=== PATIENT | male | born 1965 | race Caucasian/White ===

== ENCOUNTER 2016-09-10 17:23 | Inpatient (IN) | payer BC ==
[2016-09-10] MEDS ORDERED: SODIUM CHLORIDE 0.9% 1000 ML INFUS.BAG IV ONE (17:42)
[2016-09-10] MEDS ORDERED: LIDOCAINE VISCOUS 2% ORAL/TOP 20 ML UNIT-DOSE CUP MM ONE (17:43)
[2016-09-10] MEDS ORDERED: FAMOTIDINE 20 MG/50 ML IVPB 50 ML IVPB ONE ×2 (17:43→17:53)
[2016-09-10] MEDS ORDERED: MAG HYDROX/AL HYDROX/SIMETH 30 ML UNIT-DOSE CUP PO ONE (17:44)
--- NOTE | 2016-09-10 17:49 | PDOC ---
History of Present Illness - General History Source: Patient Exam Limitations: No Limitations <Winifred Batista - Last Filed: 09/10/16 17:46> - General History Source: Patient Exam Limitations: No Limitations - History of Present Illness Initial Comments: 09/10/16 17:50 The patient is a 51 year old male, with a significant past medical history of pancreatitis, diabetes and kidney stones, who presents to the emergency department with abdominal pain and nausea for a couple of days, which worsened today. He describes her abdominal pain as a sharp sensation, intermittent in nature, ranging from mild to moderate, without radiation or modifying factors. He denies any change in severity with food intake. He reports that he does take a baby aspirin daily. The patient was last in the ED September 2015 with the same symptoms, CT abdomen and pelvis revealed pancreatitis and fatty infiltration of the liver. The patient denies chest pain, shortness of breath, headache and dizziness. Denies fever, chills, vomit, diarrhea and constipation. Denies dysuria, frequency, urgency and hematuria. Allergies: None Past surgical history: None reported Social history: Cigarette use. No alcohol or drug use reported PMD - Dr. Underwood Pain Radiation: reports: no radiation <Rajinder Peoples - Last Filed: 09/10/16 17:51> - General Chief Complaint: Pain, Acute Stated Complaint: abd pain Time Seen by Provider: 09/10/16 17:35 Past History - Past Medical History Diabetes: Yes HTN: Yes Hypercholesterolemia: Yes Kidney Stones: Yes - Psycho/Social/Smoking Cessation Hx Anxiety: No Suicidal Ideation: No Smoking Status: Yes Smoking History: Current every day smoker Have you smoked in the past 12 months: Yes Number of Cigarettes Smoked Daily: 20 If you are a former smoker, when did you quit?: yes, four months ago Information on smoking cessation initiated: Yes 'Breaking Loose' booklet given: 09/10/16 Hx Alcohol Use: No Drug/Substance Use Hx: No Substance Use Type: None Hx Substance Use Treatment: No <Winifred Batista - Last Filed: 09/10/16 17:46> <Rajinder Peoples - Last Filed: 09/10/16 17:51> - Past Medical History Allergies/Adverse Reactions: Allergies Allergy/AdvReac Type Severity Reaction Status Date / Time No Known Allergies Allergy Verified 09/10/16 17:24 Home Medications: Ambulatory Orders Aspirin [Ecotrin] 81 mg PO DAILY 10/08/15 Metformin HCl [Glucophage -] 500 mg PO DAILY 10/08/15 Ramipril 2.5 mg PO DAILY 10/08/15 Atorvastatin Ca [Lipitor] 40 mg PO HS 09/10/16 Review of Systems - Review of Systems Able to Perform ROS?: Yes Comments:: 09/10/16 17:51 GENERAL/CONSTITUTIONAL: No fever or chills. No weakness. HEAD, EYES, EARS, NOSE AND THROAT: No change in vision. No ear pain or discharge. No sore throat. CARDIOVASCULAR: No chest pain or shortness of breath RESPIRATORY: No cough, wheezing, or hemoptysis. GASTROINTESTINAL: (+) Abdominal pain and nausea. No vomiting, diarrhea or constipation. GENITOURINARY: No dysuria, frequency, or change in urination. MUSCULOSKELETAL: No joint or muscle swelling or pain. No neck or back pain. SKIN: No rash NEUROLOGIC: No headache, vertigo, loss of consciousness, or change in strength/ sensation. ENDOCRINE: No increased thirst. No abnormal weight change HEMATOLOGIC/LYMPHATIC: No anemia, easy bleeding, or history of blood clots. ALLERGIC/IMMUNOLOGIC: No hives or skin allergy. <Rajinder Peoples - Last Filed: 09/10/16 17:51> *Physical Exam - Vital Signs Last Vital Signs Temp Pulse Resp BP Pulse Ox 98.4 F 89 18 160/104 100 09/10/16 17:24 09/10/16 17:24 09/10/16 17:24 09/10/16 17:24 09/10/16 17:24 <Winifred Batista - Last Filed: 09/10/16 17:46> - Vital Signs Last Vital Signs Temp Pulse Resp BP Pulse Ox 98.4 F 89 18 160/104 100 09/10/16 17:24 09/10/16 17:24 09/10/16 17:24 09/10/16 17:24 09/10/16 17:24 - Physical Exam Comments: 09/10/16 17:51 GENERAL: Awake, alert, and fully oriented, in no acute distress HEAD: No signs of trauma, normocephalic, atraumatic EYES: PERRLA, EOMI, sclera anicteric, conjunctiva clear ENT: Auricles normal inspection, hearing grossly normal, nares patent, oropharynx clear without exudates. Moist mucosa NECK: Normal ROM, supple, no lymphadenopathy, JVD, or masses LUNGS: No distress, speaks full sentences, clear to auscultation bilaterally HEART: Regular rate and rhythm, normal S1 and S2, no murmurs, rubs or gallops, peripheral pulses normal and equal bilaterally. ABDOMEN: (+) Obese, epigastric tenderness. Soft, normoactive bowel sounds. No guarding, no rebound. No masses EXTREMITIES: Normal inspection, Normal range of motion, no edema. No clubbing or cyanosis. NEUROLOGICAL: Cranial nerves II through XII grossly intact. Normal speech, normal gait, no focal sensorimotor deficits SKIN: Warm, Dry, normal turgor, no rashes or lesions noted. Vascular Pulses: Femoral (R): 4+, Femoral (L): 4+, Carotid (R): 4+, Carotid (L) : 4+, Dorsalis-Pedis (R): 4+, Doralis-Pedis (L): 4+ <Rajinder Peoples - Last Filed: 09/10/16 17:51> ED Treatment Course - RADIOLOGY Radiology Studies Ordered: Category Date Time Status ABDOMEN & PELVIS CT WITH CONTR [CT] Stat CT Scan 09/10/16 17:42 Ordered <Winifred Batista - Last Filed: 09/10/16 17:46> Medical Decision Making - Medical Decision Making 09/10/16 17:46 51 yo M ho dM HTN , h/o pancreatitis ( idiopathic) here wtih c/o few days of abd epigastric pain. no n/v/d. no fever pain constant, but it gets worse in waves. no fever or chills. no h/o alcohol. no h/o gallstones. no cp no sob. no diarrhea. no urinary complaints. no change to appetitie, no change to pain with food. on exam awake alert. lungs clear. heart rrr no mrg. abd soft obese, epigastric ttp. no rebound no guard. ext wwp no edema. plan: ct a/p eval pancreatitis. labs lipase ua pain control. differential cholecysitis, pud, gastritis, <Winifred Batista - Last Filed: 09/10/16 17:46> *DC/Admit/Observation/Transfer <Winifred Batista - Last Filed: 09/10/16 17:46> - Attestations Scribe Attestion: 09/10/16 17:51 Documentation prepared by Rajinder Peoples, acting as medical director for Winifred Batista MD <Rajinder Peoples - Last Filed: 09/10/16 17:51> - Discharge Dispostion Condition at time of disposition: Stable
[2016-09-10] MEDS ORDERED: MAG HYDROX/AL HYDROX/SIMETH 30 ML UNIT-DOSE CUP ONE (17:54)
[2016-09-10] MEDS ORDERED: LIDOCAINE VISCOUS 2% ORAL/TOP 100 ML BOTTLE ONE (17:55)
[2016-09-10 18:14] LABS: URINE APPEARANCE Clear; URINE BILIRUBIN Negative (NEGATIVE); URINE BLOOD Negative (NEGATIVE); URINE GLUCOSE (UA) Trace (NEGATIVE); URINE KETONE Negative (NEGATIVE); URINE LEUK ESTERASE Negative (NEGATIVE); URINE NITRITE Negative (NEGATIVE); URINE PROTEIN Negative (NEGATIVE); URINE UROBILINOGEN 0.2 E.U/dl (0.2-1.0)
[2016-09-10 18:18] LABS: URINE COLOR YELLOW
[2016-09-10 18:21] LABS: ALBUMIN 3.7 g/dl (3.5-5.0); ALK PHOS 79 U/L (32-92); AMYLASE 67 U/L (25-125); ANION GAP 8 (8-16); BILIRUBIN,TOTAL 0.8 mg/dl (0.2-1.0); CALCIUM 9.5 mg/dl (8.4-10.2); CO2 26 mmol/L (22-28); CREATININE 0.9 mg/dl (0.6-1.3); GLUCOSE,RANDOM 235 mg/dl (74-106); SGOT/AST 19 U/L (10-42); SGPT/ALT 27 U/L (10-40); TOT PROT 7.3 g/dl (6.4-8.3)
[2016-09-10 18:23] LABS: COCKROFT - GAULT NT
[2016-09-10 18:36] LABS: RDW 12.8 % (11.9-15.9)
[2016-09-10 18:38] LABS: MCH 27.8 pg (25.7-33.7); MCHC 33.5 g/dl (32.0-35.9); WHITE BLOOD COUNT 14.1 K/mm3 (4.0-10.8)
[2016-09-10 18:39] LABS: BASOPHIL 0.7 % (0-2.0); NEUTROPHILS 68.1 % (42.8-82.8)
[2016-09-10 18:49] LABS: MEAN PLT VOLUME 11.4 fl (7.5-11.1)
[2016-09-10 18:50] LABS: PLATELET COUNT 228 K/MM3 (134-434)
[2016-09-10] MEDS ORDERED: ONDANSETRON 4 MG/2 ML VIAL IVPUSH ONE (19:08)
[2016-09-10] MEDS ORDERED: ONDANSETRON 4 MG/2 ML VIAL ONE (19:08)
--- NOTE | 2016-09-10 19:47 | PDOC ---
*Physical Exam - Vital Signs Last Vital Signs Temp Pulse Resp BP Pulse Ox 98.4 F 89 18 160/104 100 09/10/16 17:24 09/10/16 17:24 09/10/16 17:24 09/10/16 18:02 09/10/16 17:24 ED Treatment Course - LABORATORY CBC & Chemistry Diagram: 09/10/16 17:52 09/10/16 17:45 - ADDITIONAL ORDERS Additional order review: Laboratory Results 09/10/16 09/10/16 18:00 17:45 Sodium 135 L Potassium 4.4 Chloride 101 Carbon Dioxide 26 Anion Gap 8 BUN 18 D Creatinine 0.9 Creat Clearance w eGFR > 60 Random Glucose 235 H D Calcium 9.5 Total Bilirubin 0.8 D AST 19 D ALT 27 D Alkaline Phosphatase 79 Total Protein 7.3 Albumin 3.7 Total Amylase 67 Lipase 178 H Urine Color Yellow Urine Appearance Clear Urine pH 5.0 Ur Specific [place] >= 1.030 H Urine Protein Negative Urine Glucose (UA) Trace Urine Ketones Negative Urine Blood Negative Urine Nitrite Negative Urine Bilirubin Negative Urine Urobilinogen 0.2 e.u/dl Ur Leukocyte Esterase Negative 09/10/16 17:52 RBC 5.42 MCV 83.0 MCHC 33.5 RDW 12.8 MPV 11.4 H Neutrophils % 68.1 D Lymphocytes % 22.5 D Monocytes % 6.7 Eosinophils % 2.0 Basophils % 0.7 - Medications Given in the ED: ED Medications Discontinued Medications Generic Name Dose Route Start Last Admin Trade Name Freq PRN Reason Stop Dose Admin Al Hydroxide/Mg Hydroxide 30 ml 09/10/16 17:44 09/10/16 18:02 Mylanta Oral Suspension - PO 09/10/16 17:45 30 ml ONCE ONE Administration Famotidine/Sodium Chloride 50 mls @ 100 mls/hr 09/10/16 17:43 09/10/16 18:01 Pepcid 20 Mg Premixed Ivpb - IVPB 09/10/16 18:12 100 mls/hr ONCE ONE Administration Lidocaine HCl 20 ml 09/10/16 17:43 09/10/16 18:01 Xylocaine 2% Viscous Oral - MM 09/10/16 17:44 20 ml ONCE ONE Administration Ondansetron HCl 4 mg 09/10/16 19:08 09/10/16 19:11 Zofran Injection IVPUSH 09/10/16 19:09 4 mg ONCE ONE Administration Sodium Chloride 1,000 ml 09/10/16 17:42 09/10/16 18:02 Normal Saline - IV 09/10/16 17:43 1,000 ml ONCE ONE Administration Progress Note - Progress Note Progress Note: Abdominal/pelvic CT shows peripancreatic stranding consistent with mild acute pancreatitis. There is no necrosis or pseudocyst evident and no other acute pathology noted in the study. The patient's PMD is Dr. Underwood. Dr. Tadeo is covering for admissions :Case discussed with him. The patient will be admitted on their service with acute pancreatitis. *DC/Admit/Observation/Transfer Diagnosis at time of Disposition: Acute pancreatitis Qualifiers: Pancreatitis type: unspecified pancreatitis type Acute pancreatitis complication: no infection or necrosis Qualified Code(s): K85.90 - Acute pancreatitis without necrosis or infection, unspecified - Discharge Dispostion Condition at time of disposition: Stable Admit: Yes
[2016-09-10] MEDS ORDERED: ONDANSETRON 4 MG/2 ML VIAL IVPB PRN (20:07)
[2016-09-10] MEDS ORDERED: oxyCODONE HCL 5 MG TABLET PO PRN (20:07)
[2016-09-10] MEDS ORDERED: ACETAMINOPHEN 325 MG TABLET (FP) PO PRN (20:07)
[2016-09-10] MEDS ORDERED: morphine CARPU-JECT 2 MG/1 ML DISP.SYRIN IVPUSH PRN (20:07)
[2016-09-10] MEDS ORDERED: morphine CARPU-JECT 4 MG/1 ML DISP.SYRIN IVPUSH ONE (20:10)
[2016-09-10] MEDS ORDERED: morphine CARPU-JECT 2 MG/1 ML DISP.SYRIN ONE (20:13)
[2016-09-10 22:02] VITALS: BMI 40.6
[2016-09-10] MEDS: LACTATED RINGERS SOLUTION 1,000 ML IV SCH (22:15)
[2016-09-10] MEDS: INSULIN SLIDING SCALE (NOVOLOG) 1 VIAL SQ SCH (22:18)
[2016-09-11] MEDS: INSULIN SLIDING SCALE (NOVOLOG) 1 VIAL SQ SCH ×4 (08:55→21:55)
[2016-09-11] MEDS: ASPIRIN COATED 81 MG TABLET.EC PO SCH (09:43)
[2016-09-11] MEDS: ENOXAPARIN NA (PORCINE) 40 MG/0.4 ML DISP.SYRIN SQ SCH (09:44)
--- NOTE | 2016-09-11 09:51 | HP ---
Admitting History and Physical - Primary Care Physician PCP: Alec Underwood - Admission Chief Complaint: My stomach hurt History of Present Illness: Mr Broderick is a pleasant 51 year old male who comes in with abdominal pain. He says it began 3 days ago. It is located in his epigastric area and radiates to his back. It is constant. At it's worst it was 8-9/10. At first he thought it was gas pain but realized it was something else when in persisted. It was not exacerbated by eating. He denies fevers, chills, lightheadedness, dizziness, chest pain, shortness of breath, nausea, vomiting, diarrhea, constipation, pain or difficulty urinating, or swelling. He had one episode of vomiting to me this morning reported by RN. Currently he says that was the only time and he feels better now. He is no longer having pain and is saying he is beginning to feel hungry. History Source: Patient Limitations to Obtaining History: No Limitations - Past Medical History Cardiovascular: Yes: HTN, Hyperlipdemia Renal/: Yes: Renal Calculi Endocrine: Yes: Diabetes Mellitus - Past Surgical History Past Surgical History: Yes: None - Smoking History Smoking history: Current every day smoker Have you smoked in the past 12 months: Yes Aproximately how many cigarettes per day: 20 - Alcohol/Substance Use Hx Alcohol Use: No History of Substance Use: reports: Marijuana - Social History Usual Living Arrangement: Yes: With Spouse ADL: Independent Occupation: none History of Recent Travel: No Home Medications - Allergies Allergies/Adverse Reactions: Allergies Allergy/AdvReac Type Severity Reaction Status Date / Time No Known Allergies Allergy Verified 09/10/16 17:24 - Home Medications Home Medications: Ambulatory Orders Aspirin [Ecotrin] 81 mg PO DAILY 10/08/15 Metformin HCl [Glucophage -] 500 mg PO DAILY 10/08/15 Ramipril 2.5 mg PO DAILY 10/08/15 Atorvastatin Ca [Lipitor] 40 mg PO HS 09/10/16 Family Disease History - Family Disease History Family Disease History: Diabetes: Father, Mother (HTN), Other: Mother, Brother ( HTN) Review of Systems Findings/Remarks: Full review of systems obtained, as per HPI and otherwise negative Physical Examination Vital Signs: Vital Signs Temperature 98.6 F 09/11/16 06:00 Pulse Rate 74 09/11/16 06:00 Respiratory Rate 18 09/11/16 06:00 Blood Pressure 120/64 09/11/16 06:00 O2 Sat by Pulse Oximetry (%) 95 09/11/16 06:40 Constitutional: Yes: No Distress, Calm, Obese Eyes: Yes: Conjunctiva Clear, EOM Intact, PERRL HENT: Yes: Atraumatic, Normocephalic Cardiovascular: Yes: Regular Rate and Rhythm. No: Gallop, Murmur, Rub Respiratory: Yes: Regular, CTA Bilaterally. No: Rales, Rhonchi, Wheezes Gastrointestinal: Yes: Normal Bowel Sounds, Soft. No: Distention, Tenderness Extremities: Yes: WNL Edema: No Labs: Laboratory Results - last 24 hr 09/10/16 09/10/16 09/10/16 17:45 17:52 18:00 WBC 14.1 H D RBC 5.42 Hgb 15.1 Hct 45.0 MCV 83.0 MCHC 33.5 RDW 12.8 Plt Count 228 MPV 11.4 H Neutrophils % 68.1 D Lymphocytes % 22.5 D Monocytes % 6.7 Eosinophils % 2.0 Basophils % 0.7 Sodium 135 L Potassium 4.4 Chloride 101 Carbon Dioxide 26 Anion Gap 8 BUN 18 D Creatinine 0.9 Creat Clearance w eGFR > 60 POC Glucometer Random Glucose 235 H D Calcium 9.5 Total Bilirubin 0.8 D AST 19 D ALT 27 D Alkaline Phosphatase 79 Total Protein 7.3 Albumin 3.7 Total Amylase 67 Lipase 178 H Urine Color Yellow Urine Appearance Clear Urine pH 5.0 Ur Specific [place] >= 1.030 H Urine Protein Negative Urine Glucose (UA) Trace Urine Ketones Negative Urine Blood Negative Urine Nitrite Negative Urine Bilirubin Negative Urine Urobilinogen 0.2 e.u/dl Ur Leukocyte Esterase Negative 09/10/16 09/11/16 22:17 06:48 WBC RBC Hgb Hct MCV MCHC RDW Plt Count MPV Neutrophils % Lymphocytes % Monocytes % Eosinophils % Basophils % Sodium Potassium Chloride Carbon Dioxide Anion Gap BUN Creatinine Creat Clearance w eGFR POC Glucometer 116 130 Random Glucose Calcium Total Bilirubin AST ALT Alkaline Phosphatase Total Protein Albumin Total Amylase Lipase Urine Color Urine Appearance Urine pH Ur Specific [place] Urine Protein Urine Glucose (UA) Urine Ketones Urine Blood Urine Nitrite Urine Bilirubin Urine Urobilinogen Ur Leukocyte Esterase Imaging - Results Cat Scan: Report Reviewed Problem List - Problems (1) Acute pancreatitis Assessment/Plan: -Mr Broderick presents with pancreatitis -had similar episode last year -admitted to the hospital -was kept npo overnight and hydrated with LR -feeling hungry today, will advance diet to clear liquid -follow up repeat lipase -check lipid panel -counselled patient on cessation of marijuana as is a class 1A drug causing pancreatitis -metformin and lipitor are class 3, will hold at this time -can restart ramipril Code(s): K85.9 - ACUTE PANCREATITIS, UNSPECIFIED * DO NOT USE * Qualifiers: Pancreatitis type: idiopathic Acute pancreatitis complication: no infection or necrosis Qualified Code(s): K85.00 - Idiopathic acute pancreatitis without necrosis or infection (2) HTN (hypertension) Assessment/Plan: -currently controlled -start ramipril Code(s): I10 - ESSENTIAL (PRIMARY) HYPERTENSION (3) Type 2 diabetes mellitus without complications Assessment/Plan: -currently npo, advance to clear liquid -hold metformin until pancreatitis resolved -FSBS and SSI Code(s): E11.9 - TYPE 2 DIABETES MELLITUS WITHOUT COMPLICATIONS (4) HLD (hyperlipidemia) Assessment/Plan: -check lipid panel -hold statin, can restart on discharge Code(s): E78.5 - HYPERLIPIDEMIA, UNSPECIFIED (5) Tobacco abuse Assessment/Plan: -counselled on stopping tobacco use -patient says he is "working on it" -declined nicotine patch, states he wants to do it on his own Code(s): Z72.0 - TOBACCO USE
[2016-09-11 10:02] LABS: BASOPHIL 0.2 % (0-2.0); EOSINOPHIL 2.7 % (0-4.5); MCH 27.7 pg (25.7-33.7); MCHC 33.1 g/dl (32.0-35.9); MEAN CELL VOLUME 83.7 fl (80-96); MEAN PLT VOLUME 11.5 fl (7.5-11.1); NEUTROPHILS 62.5 % (42.8-82.8); PLATELET COUNT 182 K/MM3 (134-434); RDW 12.8 % (11.9-15.9); WHITE BLOOD COUNT 9.6 K/mm3 (4.0-10.8)
[2016-09-11 10:09] LABS: CALCIUM 9.1 mg/dl (8.4-10.2); COCKROFT - GAULT 190.57; CREATININE 0.8 mg/dl (0.6-1.3); MAGNESIUM 1.9 mg/dL (1.8-2.4); PHOSPHOROUS 3.4 mg/dl (2.5-4.6)
[2016-09-11 12:16] LABS: CHOLESTEROL 126 mg/dl
[2016-09-11] MEDS: LACTATED RINGERS SOLUTION 1,000 ML IV SCH (20:20)
[2016-09-12 08:36] LABS: BASOPHIL 0.4 % (0-2.0); EOSINOPHIL 3.1 % (0-4.5); MCH 27.5 pg (25.7-33.7); MCHC 33.5 g/dl (32.0-35.9); MEAN PLT VOLUME 11.7 fl (7.5-11.1); NEUTROPHILS 59.5 % (42.8-82.8); PLATELET COUNT 210 K/MM3 (134-434); RDW 12.6 % (11.9-15.9); WHITE BLOOD COUNT 9.3 K/mm3 (4.0-10.8)
[2016-09-12 08:42] LABS: CALCIUM 9.5 mg/dl (8.4-10.2); COCKROFT - GAULT 190.57; CREATININE 0.8 mg/dl (0.6-1.3); PHOSPHOROUS 3.7 mg/dl (2.5-4.6)
[2016-09-12] MEDS: INSULIN SLIDING SCALE (NOVOLOG) 1 VIAL SQ SCH ×3 (09:00→17:30)
--- NOTE | 2016-09-12 09:35 | PN ---
Progress Note, Physician Chief Complaint: Mr Broderick says he is still having some abdominal pain but it is much decreased. No cp, sob, n/v. - Current Medication List Current Medications: Active Medications Acetaminophen (Tylenol -) 650 mg PO Q4H PRN PRN Reason: FEVER OR PAIN Last Admin: 09/11/16 08:54 Dose: 650 mg Aspirin (Ecotrin -) 81 mg PO DAILY [facility] Last Admin: 09/11/16 09:43 Dose: 81 mg Enoxaparin Sodium (Lovenox -) 40 mg SQ DAILY [facility] Last Admin: 09/11/16 09:44 Dose: 40 mg Lactated Ringer's (Lactated Ringers Solution) 1,000 mls @ 125 mls/hr IV ASDIR [facility] Last Admin: 09/11/16 20:20 Dose: 125 mls/hr Insulin Aspart (Novolog Vial Sliding Scale -) 1 vial SQ ACHS [facility] PRN Reason: Protocol Last Admin: 09/11/16 21:55 Dose: Not Given Morphine Sulfate (Morphine Injection -) 2 mg IVPUSH Q4H PRN PRN Reason: PAIN LEVEL 6-10 Last Admin: 09/11/16 01:19 Dose: 2 mg Ondansetron HCl (Zofran Injection) 4 mg IVPB Q6H PRN PRN Reason: NAUSEA Oxycodone HCl (Roxicodone -) 5 mg PO Q4H PRN PRN Reason: PAIN - Objective Vital Signs: Vital Signs Temperature 98.0 F 09/12/16 06:00 Pulse Rate 73 09/12/16 06:00 Respiratory Rate 18 09/12/16 06:00 Blood Pressure 106/60 09/12/16 06:00 O2 Sat by Pulse Oximetry (%) 97 09/12/16 06:32 Constitutional: Yes: No Distress, Calm, Obese Cardiovascular: Yes: Regular Rate and Rhythm. No: Gallop, Murmur, Rub Respiratory: Yes: Regular, CTA Bilaterally. No: Rales, Rhonchi, Wheezes Gastrointestinal: Yes: Normal Bowel Sounds, Soft. No: Distention, Tenderness Extremities: Yes: WNL Edema: No Labs: CBC, BMP 09/12/16 07:00 09/12/16 07:00 Problem List - Problems (1) Acute pancreatitis Code(s): K85.9 - ACUTE PANCREATITIS, UNSPECIFIED * DO NOT USE * Qualifiers: Pancreatitis type: idiopathic Acute pancreatitis complication: no infection or necrosis Qualified Code(s): K85.00 - Idiopathic acute pancreatitis without necrosis or infection (2) HTN (hypertension) Code(s): I10 - ESSENTIAL (PRIMARY) HYPERTENSION (3) Type 2 diabetes mellitus without complications Code(s): E11.9 - TYPE 2 DIABETES MELLITUS WITHOUT COMPLICATIONS (4) HLD (hyperlipidemia) Code(s): E78.5 - HYPERLIPIDEMIA, UNSPECIFIED (5) Tobacco abuse Code(s): Z72.0 - TOBACCO USE Assessment/Plan (1) Acute pancreatitis Assessment/Plan: -lipid panel normal -improving, still with slightly elevated lipase -will continue full liquid diet today, increase to diabetic at dinner -monitor tonight and recheck tomorrow after eating regular diet -if doing well, discharge tomorrow Code(s): K85.9 - ACUTE PANCREATITIS, UNSPECIFIED * DO NOT USE * Qualifiers: Pancreatitis type: idiopathic Acute pancreatitis complication: no infection or necrosis Qualified Code(s): K85.00 - Idiopathic acute pancreatitis without necrosis or infection (2) HTN (hypertension) Assessment/Plan: -continue ramipril Code(s): I10 - ESSENTIAL (PRIMARY) HYPERTENSION (3) Type 2 diabetes mellitus without complications Assessment/Plan: -diet as above -patient requesting to change diabetic medication -will change to glipizide on discharge Code(s): E11.9 - TYPE 2 DIABETES MELLITUS WITHOUT COMPLICATIONS (4) HLD (hyperlipidemia) Assessment/Plan: -restart lipitor on discharge Code(s): E78.5 - HYPERLIPIDEMIA, UNSPECIFIED (5) Tobacco abuse Assessment/Plan: -again counselled on stopping tobacco as is independent risk factor in pancreatitis Code(s): Z72.0 - TOBACCO USE Dispo -possible discharge tomorrow
[2016-09-12] MEDS: ENOXAPARIN NA (PORCINE) 40 MG/0.4 ML DISP.SYRIN SQ SCH (10:44)
[2016-09-12] MEDS: ASPIRIN COATED 81 MG TABLET.EC PO SCH (10:44)
--- NOTE | 2016-09-12 14:44 | EKG ---
Test Reason : Blood Pressure : / mmHG Vent. Rate : 087 BPM Atrial Rate : 087 BPM P-R Int : 142 ms QRS Dur : 076 ms QT Int : 374 ms P-R-T Axes : 096 -12 022 degrees QTc Int : 450 ms NORMAL SINUS RHYTHM NORMAL ECG WHEN COMPARED WITH ECG OF 07-FEB-2013 14:10, NO SIGNIFICANT CHANGE WAS FOUND Confirmed by RALPH FIGUEREDO MD ([id number] on 09/12/2016 2:43:45 PM Referred By: AMIRAH Confirmed By:RALPH FIGUEREDO MD
[2016-09-13 06:03] VITALS: BP 122/78; PULSE 72; TEMP 98.6
[2016-09-13] MEDS: INSULIN SLIDING SCALE (NOVOLOG) 1 VIAL SQ SCH ×2 (07:17→11:33)
[2016-09-13 08:39] LABS: BASOPHIL 0.3 % (0-2.0); MCH 27.8 pg (25.7-33.7); MCHC 33.6 g/dl (32.0-35.9); MEAN CELL VOLUME 82.6 fl (80-96); MEAN PLT VOLUME 11.3 fl (7.5-11.1); NEUTROPHILS 55.8 % (42.8-82.8); PLATELET COUNT 234 K/MM3 (134-434); RDW 12.4 % (11.9-15.9); WHITE BLOOD COUNT 9.3 K/mm3 (4.0-10.8)
[2016-09-13 08:49] LABS: ANION GAP 10 (8-16); CALCIUM 9.7 mg/dl (8.4-10.2); CO2 25 mmol/L (22-28); CREATININE 0.8 mg/dl (0.6-1.3); GLUCOSE,RANDOM 129 mg/dl (74-106); PHOSPHOROUS 3.9 mg/dl (2.5-4.6)
--- NOTE | 2016-09-13 09:34 | DS ---
Physical Examination Vital Signs: Vital Signs Temperature 98.6 F 09/13/16 06:00 Pulse Rate 72 09/13/16 06:00 Respiratory Rate 20 09/13/16 06:00 Blood Pressure 122/78 09/13/16 06:00 O2 Sat by Pulse Oximetry (%) 100 09/13/16 08:08 Constitutional: Yes: No Distress, Calm, Obese Cardiovascular: Yes: Regular Rate and Rhythm. No: Gallop, Murmur, Rub Respiratory: Yes: Regular, CTA Bilaterally. No: Rales, Rhonchi, Wheezes Gastrointestinal: Yes: Normal Bowel Sounds, Soft. No: Distention, Tenderness Extremities: Yes: WNL Edema: No Labs: CBC, BMP 09/13/16 07:35 09/13/16 07:35 Discharge Summary Reason For Visit: PANCREATITIS Current Active Problems Acute pancreatitis (Acute) HLD (hyperlipidemia) (Acute) Tobacco abuse (Acute) Hospital Course: (1) Acute pancreatitis Code(s): K85.9 - ACUTE PANCREATITIS, UNSPECIFIED * DO NOT USE * Qualifiers: Pancreatitis type: idiopathic Acute pancreatitis complication: no infection or necrosis Qualified Code(s): K85.00 - Idiopathic acute pancreatitis without necrosis or infection (2) HTN (hypertension) Code(s): I10 - ESSENTIAL (PRIMARY) HYPERTENSION (3) Type 2 diabetes mellitus without complications Code(s): E11.9 - TYPE 2 DIABETES MELLITUS WITHOUT COMPLICATIONS (4) HLD (hyperlipidemia) Code(s): E78.5 - HYPERLIPIDEMIA, UNSPECIFIED (5) Tobacco abuse Code(s): Z72.0 - TOBACCO USE Mr Broderick is a pleasant 51 year old male who comes in with acute pancreatitis. He was admitted and made npo. He was hydrated with IVF. His statin and metformin were held. He improved significantly and his diet was advanced without difficulty. He is currently eating a normal diet and is pain free. He requested his metformin be changed, he has concern it was contributing to pancreatitis. He was also instructed to stop smoking both tobacco and marijuana. He will be changed to glipizide. Currently he is safe for discharge home. 31 minutes spent in preparation of this discharge Condition: Good - Instructions Diet, Activity, Other Instructions: diabetic diet. resume previous activity. Referrals: Alec Underwood MD [Staff Physician] - Disposition: HOME - Home Medications Comprehensive Discharge Medication List: Ambulatory Orders Aspirin [Ecotrin] 81 mg PO DAILY 10/08/15 Ramipril 2.5 mg PO DAILY 10/08/15 Atorvastatin Ca [Lipitor] 40 mg PO HS 09/10/16 Glipizide [Glipizide ER] 2.5 mg PO DAILY #30 [email or web address] 09/13/16
[2016-09-13] MEDS: ASPIRIN COATED 81 MG TABLET.EC PO SCH (09:57)
[2016-09-13] MEDS: ENOXAPARIN NA (PORCINE) 40 MG/0.4 ML DISP.SYRIN SQ SCH (09:57)
== END 2016-09-13 12:08 | disposition home or self-care (01) | DRG 439 ==
LOC: FER 17:23 → FM/S 21:36
PROVIDERS: ADMIT Internal Medicine; ATTEND Internal Medicine
DX: K85.00 Idiopathic acute pancreatitis without necrosis or infection (principal); Z68.41 Body mass index [BMI] 40.0-44.9, adult; I10 Essential (primary) hypertension; E78.5 Hyperlipidemia, unspecified; E11.9 Type 2 diabetes mellitus without complications; Z87.442 Personal history of urinary calculi; F17.210 Nicotine dependence, cigarettes, uncomplicated; E66.8 Other obesity
CPT/HCPCS: 36415; 74177-TC; 80048; 80053; 80061; 81003; 82150; 83690; 83735; 84100; 85025; 93005; 94010; 99283-25

== ENCOUNTER 2018-01-05 18:50 | Emergency (ER) | payer BC ==
[2018-01-05 19:04] VITALS: BP 136/73; PULSE 99; TEMP 98.6; BMI 40.6
[2018-01-05] MEDS ORDERED: IBUPROFEN 600 MG TABLET (FP) PO ONE ×2 (19:52→19:57)
--- NOTE | 2018-01-05 20:18 | PDOC ---
History of Present Illness - General History Source: Patient Exam Limitations: No Limitations - History of Present Illness Initial Comments: 01/05/18 20:13 52-year-old male history of diabetes hyperlipidemia here today status post fall patient states he tripped and fell down 7 stairs fell forward after twisting his ankle. Didn't hit his head denies any LOC states this happened earlier this morning no nausea no vomiting is complaining of right ankle pain and swelling. Has been ambulating with a limp. Does take a daily baby aspirin did hit his head he also sustained an abrasion to his left arm and forehead. No new focal weakness numbness tingling denies a headache pain is moderate did take a Tylenol with mild relief no knee or hip pain <Winifred Batista - Last Filed: 01/05/18 20:58> <Jeni Dewitt - Last Filed: 01/05/18 21:02> - General Chief Complaint: Injury Stated Complaint: TRIP & FALL Past History - Past Medical History Anemia: No Asthma: No Cancer: No Cardiac Disorders: No CVA: No COPD: No CHF: No Dementia: No Diabetes: Yes GI Disorders: Yes (pancreatitis 2015) HTN: Yes Hypercholesterolemia: Yes Kidney Stones: Yes Seizures: No - Immunization History Td Vaccination: Yes (2013) - Suicide/Smoking/Psychosocial Hx Smoking Status: Yes Smoking History: Former smoker Have you smoked in the past 12 months: No Number of Cigarettes Smoked Daily: 20 If you are a former smoker, when did you quit?: 2017 Information on smoking cessation initiated: Yes 'Breaking Loose' booklet given: 09/10/16 Hx Alcohol Use: No Drug/Substance Use Hx: No Substance Use Type: None Hx Substance Use Treatment: No <Winifred Batista - Last Filed: 01/05/18 20:58> <Jeni Dewitt - Last Filed: 01/05/18 21:02> - Past Medical History Allergies/Adverse Reactions: Allergies Allergy/AdvReac Type Severity Reaction Status Date / Time No Known Allergies Allergy Verified 01/05/18 18:55 Home Medications: Ambulatory Orders Aspirin [Ecotrin] 81 mg PO DAILY 10/08/15 Ramipril 2.5 mg PO DAILY 10/08/15 Glipizide [Glipizide ER] 2.5 mg PO DAILY #30 tab.[id number] 09/13/16 Acetaminophen [Tylenol Arthritis] 1,300 mg PO BID PRN 01/05/18 Atorvastatin Ca [Lipitor] 10 mg PO DAILY 01/05/18 Ibuprofen 600 mg PO TID PRN #30 tablet MDD 3 01/05/18 Review of Systems - Review of Systems Constitutional: No: Chills, Diaphoresis HEENTM: No: Eye Pain, Nose Bleeding Respiratory: No: Cough, Shortness of Breath Cardiac (ROS): No: Chest Pain Musculoskeletal: Yes: Joint Pain, Joint Swelling Integumentary: Yes: Other (abrasion) All Other Systems: Reviewed and Negative <Winifred Batista - Last Filed: 01/05/18 20:58> *Physical Exam - Vital Signs Last Vital Signs Temp Pulse Resp BP Pulse Ox 98.6 F 99 H 18 136/73 98 01/05/18 18:51 01/05/18 18:51 01/05/18 18:51 01/05/18 18:51 01/05/18 18:51 - Physical Exam Comments: 01/05/18 20:16 Awake alert no acute distress. HEENT exam demonstrates pupils are equally round and react to light. Extraocular motions are intact. There is a central forehead superficial abrasion no bony step-offs no crepitus. Jaw no malocclusion. Lungs are clear bilaterally heart is regular without any murmurs rubs or gallops. Chest wall no focal tenderness no step-offs no crepitus. Abdomen is soft and nontender hips are's nontender bilaterally pelvis is stable. Extremities are warm and well-perfused. The right lower extremity demonstrates ankle with tenderness to palpation over the lateral malleolus. Negative medial or posterior malleoli tenderness. Decreased range of motion due to pain pain with inversion the foot is nontender there is associated malleoli or swelling knee is nontender full range of motion and hip is nontender full range of motion. No proximal fibular tenderness skin is warm and dry there is noted to be in a superficial abrasion over the left flexion crease of the upper forearm and the forehead as described above neurologically the patient is alert and oriented 3 GCS 15 5 out of 5 strength all 4 extremities <Winifred Batista - Last Filed: 01/05/18 20:58> - Vital Signs Last Vital Signs Temp Pulse Resp BP Pulse Ox 98.6 F 99 H 18 136/73 98 01/05/18 18:51 01/05/18 18:51 01/05/18 18:51 01/05/18 18:51 01/05/18 18:51 <Jeni Dewitt - Last Filed: 01/05/18 21:02> ED Treatment Course - RADIOLOGY Radiology Studies Ordered: Category Date Time Status HEAD CT WITHOUT CONTRAST [CT] Stat CT Scan 01/05/18 19:51 Taken ANKLE-RIGHT [RAD] Stat Radiology 01/05/18 19:52 Ordered - Medications Given in the ED: ED Medications Discontinued Medications Generic Name Dose Route Start Last Admin Trade Name Freq PRN Reason Stop Dose Admin Ibuprofen 600 mg 01/05/18 19:52 01/05/18 19:58 Motrin - PO 01/05/18 19:53 600 mg ONCE ONE Administration <Winifred Batista - Last Filed: 01/05/18 20:58> - Medications Given in the ED: ED Medications Discontinued Medications Generic Name Dose Route Start Last Admin Trade Name Freq PRN Reason Stop Dose Admin Ibuprofen 600 mg 01/05/18 19:52 01/05/18 19:58 Motrin - PO 01/05/18 19:53 600 mg ONCE ONE Administration <Jeni Dewitt - Last Filed: 01/05/18 21:02> Medical Decision Making - Medical Decision Making 01/05/18 20:17 Differential diagnosis includes intracranial hemorrhage, superficial abrasion, ankle fracture versus sprain. Otherwise the patient's exam is nontender no further imaging is necessary we will obtain CT head to rule out ICH as he does take baby aspirin x-rays of the right ankle. Motrin for pain control likely DC with an ankle splint and follow-up with orthopedic head CT is negative <Winifred Batista - Last Filed: 01/05/18 20:58> - Medical Decision Making 01/05/18 21:02 EXAM: CT Head wo HISTORY: 52 year old man: Head trauma following a fall. COMPARISON: None FINDINGS: There are no intracranial hemorrhages, brain parenchymal contusion injuries, or imaged calvarial, facial or skull base fractures. There is no subcutaneous soft tissue swelling. The cerebral sulci and ventricles are normal in size. There are no intracranial hemorrhages, extra-axial fluid collections or evidence of an intra-axial mass lesion. There is no evidence of an acute or chronic ischemic lesion at this time. Orbital and petrous structures, cerebellopontine angles, and posterior fossa appear unremarkable. The paranasal and mastoid sinuses are clear. IMPRESSION: Normal CT scan of the head. No calvarial, facial or skull base fractures imaged on the current exam. No intracranial hemorrhages or brain parenchymal contusion injuries. THIS DOCUMENT HAS BEEN ELECTRONICALLY SIGNED Gary Abraham MD. 01/05/2018 20:51 EST <Jeni Dewitt - Last Filed: 01/05/18 21:02> *DC/Admit/Observation/Transfer <Winifred Batista - Last Filed: 01/05/18 20:58> <Jeni Dewitt - Last Filed: 01/05/18 21:02> Diagnosis at time of Disposition: Head trauma, Ankle injury, Right fibular fracture - Discharge Dispostion Disposition: HOME Condition at time of disposition: Improved - Prescriptions Prescriptions: Ibuprofen 600 mg PO TID PRN #30 tablet MDD 3 PRN Reason: Pain - Referrals Referrals: Alec Underwood MD [Primary Care Provider] - Binh Manzo MD [Staff Physician] - - Patient Instructions Printed Discharge Instructions: Ankle Fracture, DI for Closed Head Injury Additional Instructions: you can follow up with an orthpedist see referral information for dr manzo.you broke your fibula or ankle which is evident on your xray. take ibuprofen 600 mg every 8 hrs as needed for pain. ice and elevate. wear splint until you follow up with the orthopedist. dr manzo. your head ct was negative. return for any persistant or worsening headache., vomiting, confusion weakness or any concerns. - Post Discharge Activity
== END 2018-01-05 22:19 | disposition home or self-care (01) ==
LOC: FER 18:50
PROC: 2W3QX1Z Immobilization of Right Lower Leg using Splint (ICD-10-PCS; principal; 2018-01-05)
DX: S82.401A Unspecified fracture of shaft of right fibula, initial encounter for closed fracture (principal); S09.90XA Unspecified injury of head, initial encounter; M25.571 Pain in right ankle and joints of right foot; Z87.891 Personal history of nicotine dependence; I10 Essential (primary) hypertension; E78.00 Pure hypercholesterolemia, unspecified; Z87.442 Personal history of urinary calculi; W10.9XXA Fall (on) (from) unspecified stairs and steps, initial encounter; Y93.89 Activity, other specified; Y92.89 Other specified places as the place of occurrence of the external cause
CPT/HCPCS: 70450-TC; 73610-TC-RT-FY; 99283-25

== ENCOUNTER 2021-06-22 01:30 | Inpatient (IN) | payer BC, OTHER ==
[2021-06-22] MEDS ORDERED: ACETAMINOPHEN 1000 MG/100 ML BAG IVPB ONE (01:45)
[2021-06-22] MEDS ORDERED: ONDANSETRON 4 MG/2 ML VIAL IVPUSH ONE (01:45)
[2021-06-22] MEDS ORDERED: KETOROLAC TROMETHAMINE 15 MG/ML VIAL IVPUSH ONE (03:25)
[2021-06-22] MEDS ORDERED: SODIUM CHLORIDE 1,000 ML IV ONE ×2 (04:23→08:30)
[2021-06-22 09:12] LABS: BASO % 0.4 % (0-2.0); EOS % 1.3 % (0-4.5); HEMATOCRIT 45.8 % (35.4-49); HEMOGLOBIN 15.4 GM/dL (11.7-16.9); LYMPH % 18.4 % (8-40); MCH 27.7 pg (25.7-33.7); MCHC 33.6 g/dl (32.0-35.9); MEAN CELL VOLUME 82.5 fl (80-96); MEAN PLT VOLUME 10.2 fl (7.5-11.1); MONO % 6.4 % (3.8-10.2); NEUT % 73.5 % (42.8-82.8); PLATELET COUNT 239 10^3/uL (134-434); RBC 5.55 M/mm3 (4.00-5.60)
[2021-06-22 09:28] LABS: URINE APPEARANCE CLEAR; URINE BILIRUBIN NEGATIVE (NEGATIVE); URINE COLOR YELLOW; URINE GLUCOSE (UA) NEGATIVE (NEGATIVE); URINE KETONE NEGATIVE (NEGATIVE); URINE NITRITE NEGATIVE (NEGATIVE); URINE PROTEIN NEGATIVE (NEGATIVE); URINE UROBILINOGEN 0.2 mg/dL (0.2-1.0)
[2021-06-22 09:29] LABS: URINE LEUK ESTERASE NEGATIVE (NEGATIVE)
[2021-06-22] MEDS: ASPIRIN COATED 81 MG TABLET.EC PO SCH (09:55)
[2021-06-22] MEDS: RAMIPRIL 2.5 MG CAPSULE PO SCH (09:55)
[2021-06-22 10:25] LABS: ALBUMIN 3.5 g/dl (3.4-5.0); ALK PHOS 73 U/L (45-117); BILIRUBIN,TOTAL 0.4 mg/dL (0.2-1); BLOOD UREA NITROGEN 16.6 mg/dL (7-18); CALCIUM 8.9 mg/dL (8.5-10.1); CHLORIDE 103 mmol/L (98-107); CO2 25 mmol/L (21-32); CREATININE 1.1 mg/dL (0.55-1.3); GLUCOSE,RANDOM 197 mg/dL (74-106); LIPASE 21659 U/L (73-393); SGOT/AST 12 U/L (15-37); SGPT/ALT 25 U/L (13-61); SODIUM 136 mmol/L (136-145)
[2021-06-22] MEDS: INSULIN (NOVOLOG) ASPART 100 UNITS/ML 10ML VIAL SQ SCH ×3 (11:19→22:09)
[2021-06-22] MEDS: ACETAMINOPHEN 1000 MG/100 ML BAG IVPB PRN ×2 (11:50→19:27)
[2021-06-22 11:58] LABS: CHOLESTEROL 144 mg/dl (50-200); HDL CHOLESTEROL 45 mg/dl (40-60); LDL CHOLESTEROL (ONLY DFH) 80 mg/dl (5-100); TRIGLYCERIDES 94 mg/dl (0-150)
[2021-06-22] MEDS: ENOXAPARIN NA (PORCINE) 40 MG/0.4 ML DISP.SYRIN SQ SCH (14:28)
[2021-06-22] MEDS: SODIUM CHLORIDE 1,000 ML IV SCH (16:49)
[2021-06-22] MEDS: ATORVASTATIN CA 10 MG TABLET (FP) PO SCH (22:09)
[2021-06-23] MEDS: ACETAMINOPHEN 1000 MG/100 ML BAG IVPB PRN (06:49)
[2021-06-23] MEDS: INSULIN (NOVOLOG) ASPART 100 UNITS/ML 10ML VIAL SQ SCH ×4 (06:49→21:47)
[2021-06-23 08:01] LABS: ALBUMIN 3.2 g/dl (3.4-5.0); BILIRUBIN,TOTAL 0.8 mg/dl (0.2-1); CALCIUM 8.6 mg/dl (8.5-10); CREATININE 0.7 mg/dl (0.55-1.3); MAGNESIUM 1.7 mg/dL (1.8-2.4); TOT PROT 5.4 g/dl (6.4-8.2)
[2021-06-23] MEDS: ENOXAPARIN NA (PORCINE) 40 MG/0.4 ML DISP.SYRIN SQ SCH (09:14)
[2021-06-23] MEDS: ASPIRIN COATED 81 MG TABLET.EC PO SCH (09:14)
[2021-06-23] MEDS: RAMIPRIL 2.5 MG CAPSULE PO SCH (09:14)
[2021-06-23 09:57] LABS: BASO % 0.4 % (0-2.0); EOS % 1.6 % (0-4.5); HEMATOCRIT 41.4 % (35.4-49); HEMOGLOBIN 13.8 GM/dL (11.7-16.9); LYMPH % 27.7 % (8-40); MCH 27.9 pg (25.7-33.7); MCHC 33.4 g/dl (32.0-35.9); MEAN CELL VOLUME 83.6 fl (80-96); MONO % 5.8 % (3.8-10.2); NEUT % 64.5 % (42.8-82.8); PLATELET COUNT 194 10^3/uL (134-434); RBC 4.95 M/mm3 (4.00-5.60); RDW 13.8 % (11.9-15.9)
[2021-06-23] MEDS: SODIUM CHLORIDE 1,000 ML IV SCH (12:30)
[2021-06-23 16:14] VITALS: BMI 40.8
[2021-06-23] MEDS ORDERED: DEXTROSE 50%-WATER - 25 GM/50 ML VIAL IVPUSH ONE (21:12)
[2021-06-23] MEDS ORDERED: DEXTROSE 5%-NORMAL SALINE 1,000 ML IV SCH (21:15)
[2021-06-23] MEDS: ATORVASTATIN CA 10 MG TABLET (FP) PO SCH (21:31)
[2021-06-23] MEDS ORDERED: ACETAMINOPHEN 1000 MG/100 ML BAG IVPB PRN (22:21)
[2021-06-24] MEDS: INSULIN (NOVOLOG) ASPART 100 UNITS/ML 10ML VIAL SQ SCH ×4 (07:27→21:40)
[2021-06-24 09:27] LABS: BASO % 0.6 % (0-2.0); EOS % 2.8 % (0-4.5); HEMATOCRIT 42.4 % (35.4-49); HEMOGLOBIN 14.1 GM/dL (11.7-16.9); LYMPH % 36.4 % (8-40); MCH 27.5 pg (25.7-33.7); MCHC 33.3 g/dl (32.0-35.9); MEAN CELL VOLUME 82.8 fl (80-96); MEAN PLT VOLUME 10.3 fl (7.5-11.1); MONO % 5.7 % (3.8-10.2); NEUT % 54.5 % (42.8-82.8); PLATELET COUNT 197 10^3/uL (134-434); RBC 5.12 M/mm3 (4.00-5.60); RDW 13.5 % (11.9-15.9)
[2021-06-24] MEDS: ENOXAPARIN NA (PORCINE) 40 MG/0.4 ML DISP.SYRIN SQ SCH (09:55)
[2021-06-24] MEDS: RAMIPRIL 2.5 MG CAPSULE PO SCH (09:55)
[2021-06-24] MEDS: ASPIRIN COATED 81 MG TABLET.EC PO SCH (09:55)
[2021-06-24 10:20] LABS: ALBUMIN 3.4 g/dl (3.4-5.0); BILIRUBIN,TOTAL 0.8 mg/dl (0.2-1); CREATININE 0.6 mg/dl (0.55-1.3); MAGNESIUM 1.8 mg/dL (1.8-2.4); TOT PROT 6.4 g/dl (6.4-8.2)
[2021-06-24] MEDS: ATORVASTATIN CA 10 MG TABLET (FP) PO SCH (21:40)
[2021-06-25] MEDS: INSULIN (NOVOLOG) ASPART 100 UNITS/ML 10ML VIAL SQ SCH ×2 (06:32→11:18)
[2021-06-25 08:55] LABS: CALCIUM 9.3 mg/dl (8.5-10)
[2021-06-25] MEDS: ENOXAPARIN NA (PORCINE) 40 MG/0.4 ML DISP.SYRIN SQ SCH (09:29)
[2021-06-25] MEDS: RAMIPRIL 2.5 MG CAPSULE PO SCH (09:29)
[2021-06-25] MEDS: ASPIRIN COATED 81 MG TABLET.EC PO SCH (09:29)
[2021-06-25 10:09] VITALS: BP 144/81; PULSE 65; TEMP 97.9
[2021-06-25 11:24] LABS: HEMATOCRIT 43.1 % (35.4-49); HEMOGLOBIN 14.3 GM/dL (11.7-16.9); MCH 27.7 pg (25.7-33.7); MCHC 33.1 g/dl (32.0-35.9); MEAN CELL VOLUME 83.8 fl (80-96); MEAN PLT VOLUME 10.6 fl (7.5-11.1); PLATELET COUNT 207 10^3/uL (134-434); RBC 5.15 M/mm3 (4.00-5.60)
== END 2021-06-25 14:25 | disposition home or self-care (01) | DRG 282 ==
LOC: FER 01:30 → FM/S 06:51
PROVIDERS: ADMIT Hospitalist; ATTEND Nurse Practitioner Acute Care
DX: K85.90 Acute pancreatitis without necrosis or infection, unspecified (principal); I10 Essential (primary) hypertension; E11.9 Type 2 diabetes mellitus without complications; E78.5 Hyperlipidemia, unspecified; F17.210 Nicotine dependence, cigarettes, uncomplicated; E66.9 Obesity, unspecified; Z68.41 Body mass index [BMI] 40.0-44.9, adult
CPT/HCPCS: 36415; 74176-TC; 76700-TC; 76775-TC; 80048; 80053; 80061; 81003; 82150; 82787; 82962; 83036; 83690; 83735; 84484; 85025; 85027; 87086; 93005; 93010; 99285-25; C9803-CS; U0003; U0005

== ENCOUNTER 2024-05-14 17:17 | Observation (INO) | payer OTHER ==
[2024-05-14] MEDS ORDERED: ACETAMINOPHEN INJECTION 100 ML ONE (18:37)
[2024-05-14] MEDS: ACETAMINOPHEN 1000 MG/100 ML BAG IVPB ONE (18:42)
[2024-05-14 18:45] LABS: HEMOGLOBIN 15.2 G/dL (11.7-16.9); MCH 27.9 pg (25.7-33.7); MCHC 33.7 g/dl (32.0-35.9); MEAN CELL VOLUME 82.9 fl (80-96); MEAN PLT VOLUME 10.7 fl (7.5-11.1); RBC 5.43 10^6/uL (4.00-5.60); RDW 14.8 % (11.9-15.9); WHITE BLOOD COUNT 10.5 10^3/uL (4.0-10.8)
[2024-05-14] MEDS: SODIUM CHLORIDE 0.9% 500 ML INFUS.BAG IV ONE (18:46)
[2024-05-14 18:52] LABS: PLATELET ESTIMATE ADEQUATE
[2024-05-14 18:57] LABS: INR 1.05 (0.83-1.09)
[2024-05-14 19:00] LABS: ACTIVATED PTT 34.5 SECONDS (25.2-36.5)
[2024-05-14 19:18] LABS: ALBUMIN 4.3 g/dl (3.4-5.0); ALK PHOS 57 U/L (45-117); ANION GAP 10 mmol/L (4-13); BILIRUBIN,TOTAL 0.5 mg/dl (0.2-1); CALCIUM 9.8 mg/dl (8.5-10.1); CHLORIDE 101 mmol/L (98-107); CO2 24 mmol/L (21-32); CREATININE 1.5 mg/dl (0.6-1.3); GLUCOSE,RANDOM 133 mg/dl (74-106); POTASSIUM 4.3 mmol/L (3.5-5.1); SGOT/AST 13 U/L (15-37); SGPT/ALT 17 U/L (7-52); SODIUM 135 mmol/L (136-145); TOT PROT 7.1 g/dl (6.4-8.2)
[2024-05-14] MEDS ORDERED: KETOROLAC TROMETHAMINE 30 MG/1 ML VIAL ONE (21:29)
[2024-05-14] MEDS: KETOROLAC TROMETHAMINE 30 MG/1 ML VIAL IVPUSH ONE (21:31)
[2024-05-14] MEDS ORDERED: LACTATED RINGERS SOLUTION 1,000 ML IV SCH (22:00)
[2024-05-15] MEDS ORDERED: ACETAMINOPHEN 1000 MG/100 ML BAG IVPB PRN (01:00)
[2024-05-15 05:57] VITALS: BMI 19.6
[2024-05-15 06:34] VITALS: RESP 18
[2024-05-15 08:35] LABS: ALBUMIN 3.9 g/dl (3.4-5.0); BILIRUBIN,TOTAL 0.6 mg/dl (0.2-1); CALCIUM 9.4 mg/dl (8.5-10.1); CREATININE 1.7 mg/dl (0.6-1.3); POTASSIUM 5.4 mmol/L (3.5-5.1); TOT PROT 6.4 g/dl (6.4-8.2)
[2024-05-15 10:29] LABS: BASO % 0.4 % (0-2.0); EOS % 2.7 % (0-4.5); HEMATOCRIT 41.5 % (35.4-49); HEMOGLOBIN 13.9 GM/dL (11.7-16.9); LYMPH % 32.5 % (8-40); MCH 27.8 pg (25.7-33.7); MCHC 33.5 g/dl (32.0-35.9); MEAN CELL VOLUME 82.9 fl (80-96); MEAN PLT VOLUME 9.9 fl (7.5-11.1); MONO % 7.6 % (3.8-10.2); NEUT % 56.8 % (42.8-82.8); PLATELET COUNT 230 10^3/uL (134-434); RDW 14.3 % (11.9-15.9); WHITE BLOOD COUNT 7.6 K/mm3 (4.0-10.0)
[2024-05-15 14:14] LABS: CHOLESTEROL 114 mg/dL (50-200); HDL CHOLESTEROL 38 mg/dL (40-60); LDL CHOLESTEROL (ONLY DFH) 50 mg/dL (5-100)
[2024-05-15] MEDS: SODIUM ZIRCONIUM CYCLOSILICATE (LOKELMA) 5 GM PACKET PO SCH (18:26)
[2024-05-16] MEDS ORDERED: ACETAMINOPHEN 325 MG TABLET (FP) PO PRN (10:03)
[2024-05-16] MEDS ORDERED: MAG HYDROX/AL HYDROX/SIMETH 30 ML UNIT-DOSE CUP PO PRN (10:03)
[2024-05-16] MEDS: PANTOPRAZOLE 40 MG TABLET PO SCH (11:58)
[2024-05-16 14:21] VITALS: BP 123/82; PULSE 67; TEMP 98.2
== END 2024-05-16 14:30 | disposition home or self-care (01) ==
LOC: FER 17:17 → FM/S 21:45
PROVIDERS: ADMIT Internal Medicine
PROC: 3E033NZ Introduction of Analgesics, Hypnotics, Sedatives into Peripheral Vein, Percutaneous Approach (ICD-10-PCS; principal; 2024-05-14)
PROC: 3E0333Z Introduction of Anti-inflammatory into Peripheral Vein, Percutaneous Approach (ICD-10-PCS; 2024-05-14)
PROC: 3E0337Z Introduction of Electrolytic and Water Balance Substance into Peripheral Vein, Percutaneous Approach (ICD-10-PCS; 2024-05-14)
DX: K85.90 Acute pancreatitis without necrosis or infection, unspecified (principal); K76.0 Fatty (change of) liver, not elsewhere classified; E11.9 Type 2 diabetes mellitus without complications; E78.5 Hyperlipidemia, unspecified; I10 Essential (primary) hypertension; N20.0 Calculus of kidney; K86.1 Other chronic pancreatitis; Z87.891 Personal history of nicotine dependence; E66.9 Obesity, unspecified; Z85.53 Personal history of malignant neoplasm of renal pelvis
CPT/HCPCS: 36415; 71046-TC-FY; 76705-TC; 76775-TC; 76856-TC; 80053; 80061; 81003; 83690; 84484; 85025; 85027; 85610; 85730; 86850; 86900; 86901; 87086; 93005; 93306-TC; 96374; 96375; 99285-25; G0378; J0131